=== PATIENT | male | born 1960 | race Caucasian/White ===

== ENCOUNTER 2018-05-15 09:29 | Emergency (ER) | payer OTHER ==
[2018-05-15 09:39] VITALS: TEMP 97.4
[2018-05-15] MEDS ORDERED: METOPROLOL SUCCINATE 50 MG ER TAB ONE (09:53)
[2018-05-15] MEDS ORDERED: METOPROLOL SUCCINATE 50 MG ER TAB PO SCH (10:00)
[2018-05-15 11:46] VITALS: BP 109/82; PULSE 58; RESP 23; O2SAT 97
== END 2018-05-15 12:18 | disposition home or self-care (01) ==
LOC: ED 09:29
DX: I47.1 Supraventricular tachycardia (principal)
CPT/HCPCS: 93005; 99284; A9270-GY